=== PATIENT | male | born 1995 | race Caucasian/White ===

== ENCOUNTER 2019-04-03 10:39 | Emergency (ER) | payer MEDICAID ==
[~2019-04-03] VITALS: Ht 177.8 cm; Wt 120.7 kg
[2019-04-03 10:51] VITALS: BP 163/96
--- NOTE | 2019-04-03 10:56 | NUR ---
PT TAKEN TO BED 8.
--- NOTE | 2019-04-03 11:00 | NUR ---
C/O HEADACHE ADN FEELING PRESSURE IN HIS HEAD. PT ADMITS TO USING CRYSTAL METH THIS AM AND MARIJUANA AND BEER. . DENIES N/V/D; SKIN IS PINK/WARM/DRY; AAOX4 LUNGS CLEAR BL; HR EVEN AND REGULAR; PT DENIES ANY FEVER, CP, SOB, OR COUGH AT THIS TIME; VSS; PATIENT POSITIONED FOR COMFORT; HOB ELEVATED; BEDRAILS UP X2; BED DOWN. ER MD MADE AWARE OF PT STATUS.MOTHER AT BEDSIDE.
[2019-04-03] MEDS ORDERED: LORazepam 2 MG/ML VIAL IM ONE (11:05)
--- NOTE | 2019-04-03 12:30 | NUR ---
PT STATED HEADACHE RELIEVED. MOTHER AT BEDSIDE.
[2019-04-03 12:48] LABS: BARBITURATE, URINE NEG. ng/ml (NEG <=200); BENZODIAZEPINE, URINE NEG. ng/mL (NEG <=200); CANNABINOID, URINE NEG. ng/mL (NEG <=50); COCAINE, URINE NEG. ng/mL (NEG <=300); OPIATE, URINE NEG. ng/mL (NEG <=2000); PHENCYCLIDINE SCREEN,URINE NEG. ng/mL (NEG <=25)
[2019-04-03 12:54] VITALS: BP 138/89
--- NOTE | 2019-04-03 12:55 | NUR ---
Patient discharged with v/s stable. Written and verbal after care instructions given and explained. Patient verbalized understanding. Ambulatory with steady gait. All questions addressed prior to discharge. Advised to follow up with PMD.
== END 2019-04-03 12:55 | disposition home or self-care (01) ==
LOC: MED 10:39
DX: F15.10 Other stimulant abuse, uncomplicated (principal); F12.10 Cannabis abuse, uncomplicated; R51 Headache
CPT/HCPCS: 80305; 96372; 99283; J2060

== ENCOUNTER 2019-04-07 10:05 | Inpatient (IN) | payer MEDICAID ==
[~2019-04-07] VITALS: Ht 177.8 cm; Wt 113.0 kg
--- NOTE | 2019-04-07 10:15 | NUR ---
23 Y MALE BIB FAMILY C/O HALLUCINATION. PT REPORTS AUDITORY HALLUCINATIONS THAT TELL HIM TO DO THINGS, BUT HE STATES THAT HE DOESNT LISTEN. BETINA SUICIDAL IDEATION AT THIS TIME. PT REPORTS HE HAS NOT BEEN TAKING MEDICATION. PT TACHY AT 141. BP 177/92. AA0X4. DIAPHORETIC. RESTLESSNESS. PT ADMITS TO CONSUMING METH TODAY. BED IS DOWN, LOCKED, BED RIAL X 1, ERMD TO SEE PT. MEDHX:SCHITZOPHRENIA RX:ATIVAN
--- NOTE | 2019-04-07 10:18 | NUR ---
PT AMBULATED TO ER BED 05
--- NOTE | 2019-04-07 10:30 | NUR ---
POTENTIALLY HARMFUL OBJECTS REMOVED FROM PT ROOM A PRECAUTION. WILL CONTINUE TO MONITOR.
--- NOTE | 2019-04-07 10:35 | NUR ---
DR RAMAN AT BEDSIDE
[2019-04-07 10:41] LABS: BASOPHILS # (AUTO) 0.1 K/uL (0.00-0.22); BASOPHILS % (AUTO) 0.4 % (0.0-2.0); EOSINOPHILS % (AUTO) 0.1 % (0.0-4.0); HEMATOCRIT 43.5 % (36-52); HEMOGLOBIN 14.7 g/dL (12.0-18.0); LYMPHOCYTES # (AUTO) 1.1 K/uL (2.0-11.5); LYMPHOCYTES % (AUTO) 6.6 % (20.5-51.1); MEAN CORPUSCULAR HEMOGLOBIN 29 pg (27-31); MEAN CORPUSCULAR HGB CONC 34 g/dL (33-37); MEAN CORPUSCULAR VOLUME 85.5 fL (80-94); MONOCYTES # (AUTO) 1.2 K/uL (0.8-1.0); MONOCYTES % (AUTO) 7.2 % (1.7-9.3); NEUTROPHILS # (AUTO) 14.7 K/uL (1.8-7.7); NEUTROPHILS % (AUTO) 85.7 % (42.2-75.2); PLATELET COUNT (AUTO) 317 K/uL (140-450); RED BLOOD CELL COUNT(AUTO) 5.09 MIL/uL (4.20-6.10); RED CELL DISTRIBUTION WIDTH 13.1 % (11.6-13.7)
[2019-04-07 10:47] LABS: BARBITURATE, URINE NEG. ng/ml (NEG <=200); BENZODIAZEPINE, URINE NEG. ng/mL (NEG <=200); CANNABINOID, URINE POS. ng/mL (NEG <=50); COCAINE, URINE NEG. ng/mL (NEG <=300); OPIATE, URINE NEG. ng/mL (NEG <=2000); PHENCYCLIDINE SCREEN,URINE NEG. ng/mL (NEG <=25)
[2019-04-07 10:48] LABS: ANION GAP 16.7 (8-16); CARBON DIOXIDE 22.4 mmol/L (21-32); CREATININE 1.4 mg/dL (0.7-1.3); POTASSIUM 4.1 mmol/L (3.5-5.1)
[2019-04-07 10:50] LABS: APPEARANCE,URINE HAZY (CLEAR); BILIRUBIN,URINE 2+ (NEGATIVE); BLOOD, URINE 3+ (NEGATIVE); COLOR,URINE ORANGE (YELLOW); LEUKOCYTE ESTERASE ,URINE NEGATIVE (NEGATIVE); NITRITE, URINE NEGATIVE (NEGATIVE); UGLUCOSE NEGATIVE (NEGATIVE)
[2019-04-07] MEDS ORDERED: diphenhydrAMINE 50 MG/ML VIAL IVP ONE (10:50)
[2019-04-07] MEDS ORDERED: NACL 0.9% 1,000 ML IV ONE ×2 (10:50)
[2019-04-07] MEDS ORDERED: MULTIVITAMIN-12 10 ML, THIAMINE 100 MG, MAGNESIUM SULFATE 50% 2,000 MG, FOLIC ACID 5 MG... IV ONE ×5 (10:50)
[2019-04-07] MEDS ORDERED: HALOPERIDOL IM 5 MG/ML VIAL IM ONE (10:50)
[2019-04-07] MEDS ORDERED: LORazepam 2 MG/ML VIAL IVP ONE (10:50)
[2019-04-07 11:03] LABS: WHITE BLOOD COUNT (AUTO) 17.2 K/uL (4.8-10.8)
[2019-04-07 11:04] LABS: WBC,URINE 0-5 /HPF (0-5)
[2019-04-07 11:06] LABS: HYALINE CASTS, URINE 0-10 /LPF (None Seen)
[2019-04-07 11:13] LABS: BARBITURATE, URINE NEGATIVE ng/ml (NEG <=200); BENZODIAZEPINE, URINE NEGATIVE ng/mL (NEG <=200); CANNABINOID, URINE POSITIVE ng/mL (NEG <=50); COCAINE, URINE NEGATIVE ng/mL (NEG <=300); OPIATE, URINE NEGATIVE ng/mL (NEG <=2000); PHENCYCLIDINE SCREEN,URINE NEGATIVE ng/mL (NEG <=25)
--- NOTE | 2019-04-07 11:20 | NUR ---
CHENTE EMT AT BEDSIDE FOR EKG
--- NOTE | 2019-04-07 11:51 | NUR ---
PT SLEEPING IN BED. FAMILY BEDSIDE.
--- NOTE | 2019-04-07 12:01 | NUR ---
FAMILY STATES HE HAS TO STEP OUT OF THE ROOM BUT WOULD LIKE TO BE UPDATED WHEN POSSIBLE. #[phone]
[2019-04-07 12:10] LABS: ACETAMINOPHEN < 0.5 ug/ml (10-30); ALBUMIN 4.7 g/dL (3.4-5.0); ASPARTATE AMINOTRANSFERASE 136 U/L (15-37); BILIRUBIN,DIRECT 0.3 mg/dL (0.0-0.3); SALICYLATE < 2.8 mg/dL (2.8-20.0)
--- NOTE | 2019-04-07 13:35 | NUR ---
PT SLEEPING IN BED. AROUSABLE TO NAME. IV FLUIDS-BANANA BAG AND NORMAL SALINE RUNNING. VSS AT THIS TIME.
--- NOTE | 2019-04-07 14:23 | NUR ---
PT SLEEPING IN BED. AROUSABLE TO NAME.
--- NOTE | 2019-04-07 14:50 | NUR ---
BP 97/38. DR RAMAN NOTIFIED.
--- NOTE | 2019-04-07 16:49 | NUR ---
VSS AT THIS TIME. PT SLEEPING IN BED. AROUSABLE TO NAME AND THEN FALLS BACK ASLEEP ALMOST IMMEDIATELY.
--- NOTE | 2019-04-07 17:49 | NUR ---
SPOKE WITH DR RAMAN REGARDING PT PLAN OF CARE. DANISHA STATES HE MEDICALLY CLEARED PATIENT FOR PSYCH CONSULT.
[2019-04-07] MEDS ORDERED: LORA-476 PO (17:52)
--- NOTE | 2019-04-07 17:53 | NUR ---
TELEPSYCH ORDERED AT THIS TIME PER DR. RAMAN REQUEST
--- NOTE | 2019-04-07 18:00 | NUR ---
PT AMB TO BATHROOM WITH STEADY GAIT AFTER WAKING UP
--- NOTE | 2019-04-07 18:17 | NUR ---
SPOKE WITH TELEPSYCH. GAVE REPORT. TELEPSYCH DR SPOKE WITH PT. PT UNABLE TO STAY AWAKE. DR STATES TO CALL HIM LATER WHEN PT CAN ANSWER HIS QUESTIONS.
--- NOTE | 2019-04-07 18:58 | NUR ---
PT SLEEPING IN BED. AROUSABLE BY NAME. CAN'T HOLD A CONVERSATION. CONTINUES TO FALL BACK ASLEEP DURING CONVERSATION.
--- NOTE | 2019-04-07 19:11 | NUR ---
ASSUMED CARE OF PT FROM LEONARD LEYVA.
--- NOTE | 2019-04-07 20:02 | NUR ---
PT LETHARGIC. AROUSABLE TO VOICE. ALERT TO NAME AND BIRTHDAY. PT REMAINS ON CONTINOUS CARDAIC MONITORING. VITAL SIGNS REMAIN STABLE.
--- NOTE | 2019-04-07 20:50 | NUR ---
2ND TELEPSYCH REQUEST INITIATED PER DR. Darius DAI
--- NOTE | 2019-04-07 21:15 | NUR ---
TELEPSYCH, DR. MARRERO, CALLED BACK AND SPOKE WITH LEONARD JIM
--- NOTE | 2019-04-07 21:19 | NUR ---
SPOKE WITH DR. MARRERO FOR TELEPSYCH CONSULT, INFORMED DR OF PT STATUS. DR. MARRERO TO SPEAK TO PT VIA TELEPSYCH.
--- NOTE | 2019-04-07 21:23 | NUR ---
TELEPSYCH, DR. MARRERO, SPEAKING WITH PATIENT VIA REMOTE COMMUNICATION
[2019-04-07] MEDS ORDERED: AMMONIA AROMATIC 1 INHL INH ONE (21:34)
--- NOTE | 2019-04-07 21:54 | NUR ---
SPOKE WITH DR. MARRERO, IS RECCOMENDING 5150 HOLD AND INPATIENT ADMISSION.
--- NOTE | 2019-04-07 22:24 | NUR ---
Sitlee Mitali at bedside for one to one.
[2019-04-07 23:08] LABS: FREE T4 (FREE THYROXINE) 1.42 ng/dL (0.76-1.46); THYROID STIMULATING HORMONE 1.34 uIU/mL (0.34-3.74)
--- NOTE | 2019-04-08 00:08 | NUR ---
Packet and [id number] has been received via fax from ED. Call Center will begin looking for bed placement at contracted facilities. ED will be notified if a bed becomes available.
--- NOTE | 2019-04-08 00:32 | NUR ---
PT REMAINS ASLEEP. VITAL SIGNS REMAIN STABLE. SITTER AT BEDSIDE FOR 1:1 OBSERVATION.
--- NOTE | 2019-04-08 00:49 | NUR ---
Contacted the following contracted psych facilities regarding bed placement. At this time no beds available. [facility], spoke with Obdulia. [facility], spoke with Yi. New referral was faxed for AM review. [facility], spoke with Peterson. New referral was faxed for AM review. [facility], spoke with Jw. [facility], spoke with Yumiko. Referral was faxed over to place patient on wait list. [facility], spoke with Nancy. Referral was faxed for AM review. [facility], spoke with Tita. New referral was faxed for AM review. ED/Unit will be notified if and when a bed becomes available for patient but at this time no bed vacancies.
[2019-04-08] MEDS ORDERED: NACL 0.9% 1,000 ML IV SCH (02:21)
[2019-04-08] MEDS ORDERED: HYDROcodone/APAP 7.5/325 MG 1 TAB PO PRN (02:25)
[2019-04-08] MEDS ORDERED: ONDANSETRON 4 MG/2 ML VIAL IVP PRN (02:25)
[2019-04-08 02:45] VITALS: BP 91/26
--- NOTE | 2019-04-08 02:45 | NUR ---
PT ARRIVED ON FLOOR VIA W/C. REPORT GIVEN BY KIMBERLY YANEZDEVELOPMENT CHEMIST WHO RECEIVED REPORT FROM ER NURSE. SITTER AT BEDSIDE .
--- NOTE | 2019-04-08 03:00 | NUR ---
Patient will be admitted to care of DR TENOROI. Admited to MED/SURG. Will go to [id number]. Belongings list completed. Report to 109-B.
--- NOTE | 2019-04-08 03:00 | NUR ---
PT ON REGULAR DIET AND WAS GIVEN SANDWICH REQUESTED. 1:1 SITTER AT BEDSIDE.
--- NOTE | 2019-04-08 03:15 | NUR ---
PT IN BED EYES CLOSED BUT AROUSABLE TO NAME AND LIGHT SHAKING. ADMISSION QUESTIONS AT BEDSIDE. PT DROWSY AND NOT FORTH COMING WITH ANSWERS FOR ADMISSION. IV SITE LAC 18 GUAGE PT RUNNING N/S AT 150MLS/HR.
--- NOTE | 2019-04-08 06:20 | NUR ---
PT IN BED SLEEPING NO S/S OF PAIN OR DISTRESS NOTED. BED LOW SIDE RAILS UP X2 AND IV SITE ON 18 G LEFT AC IN TACT AND RUNNING N/S AT 150. SITTER AT BEDSIDE.
--- NOTE | 2019-04-08 07:35 | NUR ---
RECEIVED BEDSIDE REPORT FROM BILINGUAL ADMINISTRATIVE ASSISTANT NURSE. PATIENT IS AWAKE, ALERT AND ORIENTEDX2. NO SIGNS OF DISTRESS ON RA. SKIN IS INTACT. PATIENT IS AMBULATORY. PATIENT IS CONTINENT. L AC 18G INFUSING NS AT 150. CLEAN, DRY AND INTACT. PATIENT ON 5150 HOLD D/T AUDITORY HALLUCINATIONS. 1:1 SITTER AT BEDSIDE. BED IN LOW POSITION. CALL LIGHT WITHIN REACH. WILL CONTINUE TO MONITOR THE PATIENT
[2019-04-08 07:47] LABS: AMYLASE 28 U/L (25-115); LIPASE 287 U/L (73-393); MAGNESIUM 2.1 mg/dL (1.8-2.4); PHOSPHORUS 2.5 mg/dL (2.5-4.9)
[2019-04-08 07:51] LABS: PROTHROMBIN TIME 9.8 secs (10.8-13.4)
[2019-04-08 08:00] VITALS: BP 111/48
[2019-04-08] MEDS ORDERED: DOCUSATE SODIUM 100 MG GELCAP PO SCH (09:00)
--- NOTE | 2019-04-08 09:15 | NUR ---
PATIENT HAS BEEN SCREENED AND CATEGORIZED LOW NUTRITION RISK. PATIENT WILL BE SEEN WITHIN 7 DAYS OF ADMISSION. 04/14/[address]
[2019-04-08] MEDS ORDERED: LORazepam 2 MG/ML VIAL IVP SCH (09:17)
[2019-04-08] MEDS: NACL 0.9% 1,000 ML IV SCH ×2 (09:25→13:29)
--- NOTE | 2019-04-08 09:50 | NUR ---
IV BLEEDING. REMOVED IV. TIP INTACT. NEW IV ON R HAND 22G. CLEAN, DRY AND INTACT
--- NOTE | 2019-04-08 10:04 | NUR ---
ADMINISTERED MEDS. PATIENT HAS MILD TREMORS. DR ORDERED A ONE TIME DOSE OF ATIVAN. PATIENT TOLERATED WELL. FREIGHT ELEVATOR ERECTOR AT BEDSIDE. EDUCATED ON MEDS SIDE EFFECTS. PATIENT SLEEPING NOW. WILL CONTINUE TO MONITOR THE PATIENT
--- NOTE | 2019-04-08 11:24 | NUR ---
PATIENT IS SLEEPING. MOM AT BEDSIDE. WILL CONTINUE TO MONITOR THE PATIENT.
--- NOTE | 2019-04-08 13:07 | NUR ---
[employer] COMPENSATION CLAIMS SPECIALIST CALLED AND SHE SAID PATIENT HAS BED AT [facility] UN[address] RM 1604B. ADDRESS IS [address] [place] [address] MAHAJAN, REPORT TO .
--- NOTE | 2019-04-08 13:29 | NUR ---
administered IVF NS AT 150. IV CLEAN, DRY AND INTACT. WILL CONTINUE TO MONITOR THE PATIENT. PATIENT IS SLEEPING. 1:1 SITTER AT BEDSIDE
[2019-04-08] MEDS ORDERED: QUET50TA PO (14:08)
--- NOTE | 2019-04-08 14:33 | NUR ---
PATIENT IN THE RR. 1:1 SITTER AT BEDSIDE, WILL CONTINUE TO MONITOR THE PATIENT.
--- NOTE | 2019-04-08 14:57 | NUR ---
CALLED NAYELI LINDY, MOTHER, AT [phone]. NO ANSWER. LEFT A MESSAGE FOR HER TO CONTACT ME BACK AND GAVE HER MY CALL BACK NUMBER
--- NOTE | 2019-04-08 15:11 | NUR ---
GAVE TELEPHONE REPORT TO LEONARD GMAEZ AT [facility]. ANSWERED ALL QUESTIONS AND GAVE CALL BACK NUMBER. I TOLD THEM I WOULD CALL THEM BACK W AN ETA.
--- NOTE | 2019-04-08 15:17 | NUR ---
DC PLANNING Re[facility] unit 2 room 1604B, that pt needed transportation set up. Per nurse Kirstin anytime. Called & set up transfer with [facility] ambulance, ph [phone], for [address] waste picker. Called & spoke w pt's mother, Bernadette Nicolas ph [phone], in [place]. Mother is agreeable w transfer today, gave facility contact information. Informed Kirstin waste picker 1600. Per Kirstin already informed pt & agreeable.
--- NOTE | 2019-04-08 15:45 | NUR ---
CALLED [facility] AND LET THEM KNOW THE PATIENT IS BEING PICKED UP AT 1600
--- NOTE | 2019-04-08 16:15 | NUR ---
EDUCATED PATIENT ON DISEASE PROCESS, ABN S/SX, WHEN TO GO TO THE ER, EDUCATED PATIENT ON GOING TO PSYCH FAMILY, FAMILY AT BEDSIDE, AUNT. MOM AWARE AND COUSIN AWARE. EDUCATED ON MEDS, MEDS MAY BE CHANGED BY PSYCH PATIENT REFUSED PNA VACCINE, FLU NOT IN SEASON. REMOVED IV, TIP INTACT. PATIENT LEFT [facility] IN STABLE CONDITION.
== END 2019-04-08 16:15 | DRG 812 ==
LOC: MED 10:05 → MTU 04-08 02:21
PROVIDERS: ADMIT General Practice; ATTEND General Practice
DX: T43.621A Poisoning by amphetamines, accidental (unintentional), initial encounter (principal); N17.0 Acute kidney failure with tubular necrosis; G92 Toxic encephalopathy; R45.851 Suicidal ideations; E86.0 Dehydration; F20.9 Schizophrenia, unspecified; F15.129 Other stimulant abuse with intoxication, unspecified; F12.10 Cannabis abuse, uncomplicated; T43.596A Underdosing of other antipsychotics and neuroleptics, initial encounter; R74.0 Nonspecific elevation of levels of transaminase and lactic acid dehydrogenase [LDH]; J32.9 Chronic sinusitis, unspecified; F19.159 Other psychoactive substance abuse with psychoactive substance-induced psychotic disorder, unspecified; E66.9 Obesity, unspecified; Z68.35 Body mass index [BMI] 35.0-35.9, adult; Z71.3 Dietary counseling and surveillance; Z79.899 Other long term (current) drug therapy; Z56.0 Unemployment, unspecified; Y92.89 Other specified places as the place of occurrence of the external cause; Z91.14 Patient's other noncompliance with medication regimen; Z91.138 Patient's unintentional underdosing of medication regimen for other reason
CPT/HCPCS: 36415; 70450; 71045; 76705; 80048; 80076; 80305; 81001; 82150; 82550; 82553; 83036; 83690; 83735; 83880; 84100; 84439; 84443; 84484; 85025; 85610; 85730; 87081; 93005; 96361; 96365; 96366; 96372; 96375; 99285; A9153; G0480; G0482; J1200; J1630; J2060; J3411; J3475; J3490; J7030; Q0092

== ENCOUNTER 2019-06-13 20:38 | Emergency (ER) | payer MEDICAID ==
[~2019-06-13] VITALS: Ht 177.8 cm; Wt 122.5 kg
[~2019-06-13 20:38] MED LIST: QUET50TA PO
[2019-06-13 20:42] VITALS: BP 123/90
[2019-06-13 21:37] LABS: BASOPHILS # (AUTO) 0.1 K/uL (0.00-0.22); BASOPHILS % (AUTO) 0.4 % (0.0-2.0); EOSINOPHILS # (AUTO) 0.1 K/uL (0-0.4); EOSINOPHILS % (AUTO) 0.4 % (0.0-4.0); HEMATOCRIT 44.4 % (36-52); HEMOGLOBIN 14.9 g/dL (12.0-18.0); LYMPHOCYTES # (AUTO) 1.9 K/uL (2.0-11.5); LYMPHOCYTES % (AUTO) 11.6 % (20.5-51.1); MEAN CORPUSCULAR HEMOGLOBIN 29 pg (27-31); MEAN CORPUSCULAR HGB CONC 34 g/dL (33-37); MEAN CORPUSCULAR VOLUME 85.1 fL (80-94); MONOCYTES # (AUTO) 1.3 K/uL (0.8-1.0); MONOCYTES % (AUTO) 7.5 % (1.7-9.3); NEUTROPHILS # (AUTO) 13.4 K/uL (1.8-7.7); NEUTROPHILS % (AUTO) 80.1 % (42.2-75.2); PLATELET COUNT (AUTO) 306 K/uL (140-450); RED BLOOD CELL COUNT(AUTO) 5.21 MIL/uL (4.20-6.10); WHITE BLOOD COUNT (AUTO) 16.8 K/uL (4.8-10.8)
[2019-06-13 22:01] LABS: ANION GAP 12.8 (8-16); CARBON DIOXIDE 27.9 mmol/L (21-32); CHLORIDE 99 mmol/L (98-107); CREATININE 1.1 mg/dL (0.7-1.3); GFR ARICAN-AMERICAN 104 mL/min (>90); GLUCOSE 89 mg/dL (74-106); POTASSIUM 3.7 mmol/L (3.5-5.1); SODIUM SERUM 136 mmol/L (136-145); UREA NITROGEN, BLOOD 10 mg/dL (7-18)
[2019-06-13 22:05] LABS: ALBUMIN 4.3 g/dL (3.4-5.0); ASPARTATE AMINOTRANSFERASE 55 U/L (15-37)
[2019-06-13 22:05] LABS: BARBITURATE, URINE NEG. ng/ml (NEG <=200); BENZODIAZEPINE, URINE NEG. ng/mL (NEG <=200); CANNABINOID, URINE NEG. ng/mL (NEG <=50); COCAINE, URINE NEG. ng/mL (NEG <=300); OPIATE, URINE NEG. ng/mL (NEG <=2000); PHENCYCLIDINE SCREEN,URINE NEG. ng/mL (NEG <=25)
[2019-06-13 22:09] LABS: ACETAMINOPHEN < 0.5 ug/ml (10-30); SALICYLATE < 2.8 mg/dL (2.8-20.0)
[2019-06-13] MEDS ORDERED: HALOPERIDOL IM 5 MG/ML VIAL IM ONE (22:25)
[2019-06-13 23:15] VITALS: BP 121/76
== END 2019-06-13 23:14 | disposition home or self-care (01) ==
LOC: MED 20:38
DX: F20.9 Schizophrenia, unspecified (principal); Z79.899 Other long term (current) drug therapy
CPT/HCPCS: 36415; 80053; 80305; 85025; 93005; 96372; 99284; G0480; G0482; J1630

== ENCOUNTER 2019-06-15 22:36 | Emergency (ER) | payer MEDICAID ==
[~2019-06-15] VITALS: Ht 177.8 cm; Wt 122.5 kg
[2019-06-15 22:44] VITALS: BP 143/85
[2019-06-15 23:18] LABS: BASOPHILS # (AUTO) 0.1 K/uL (0.00-0.22); BASOPHILS % (AUTO) 0.7 % (0.0-2.0); EOSINOPHILS # (AUTO) 0.1 K/uL (0-0.4); EOSINOPHILS % (AUTO) 0.8 % (0.0-4.0); HEMATOCRIT 45.2 % (36-52); HEMOGLOBIN 15.4 g/dL (12.0-18.0); LYMPHOCYTES # (AUTO) 2.6 K/uL (2.0-11.5); LYMPHOCYTES % (AUTO) 15.1 % (20.5-51.1); MEAN CORPUSCULAR HEMOGLOBIN 29 pg (27-31); MEAN CORPUSCULAR HGB CONC 34 g/dL (33-37); MONOCYTES # (AUTO) 1.3 K/uL (0.8-1.0); MONOCYTES % (AUTO) 7.8 % (1.7-9.3); NEUTROPHILS # (AUTO) 12.8 K/uL (1.8-7.7); NEUTROPHILS % (AUTO) 75.6 % (42.2-75.2); PLATELET COUNT (AUTO) 330 K/uL (140-450); RED BLOOD CELL COUNT(AUTO) 5.32 MIL/uL (4.20-6.10); WHITE BLOOD COUNT (AUTO) 16.9 K/uL (4.8-10.8)
[2019-06-16 00:01] LABS: ANION GAP 12.4 (8-16); CARBON DIOXIDE 28.5 mmol/L (21-32); CHLORIDE 100 mmol/L (98-107); CREATININE 1.2 mg/dL (0.7-1.3); GFR ARICAN-AMERICAN 94 mL/min (>90); GLUCOSE 113 mg/dL (74-106); POTASSIUM 3.9 mmol/L (3.5-5.1); SODIUM SERUM 137 mmol/L (136-145); UREA NITROGEN, BLOOD 9 mg/dL (7-18)
[2019-06-16 00:07] LABS: ALBUMIN 4.3 g/dL (3.4-5.0); ASPARTATE AMINOTRANSFERASE 42 U/L (15-37); TOTAL BILIRUBIN 0.6 mg/dL (0.0-1.0)
[2019-06-16 00:08] LABS: SALICYLATE < 2.8 mg/dL (2.8-20.0)
[2019-06-16 00:09] LABS: ACETAMINOPHEN < 0.5 ug/ml (10-30)
[2019-06-16 00:21] LABS: APPEARANCE,URINE CLEAR (CLEAR); BILIRUBIN,URINE NEGATIVE (NEGATIVE); BLOOD, URINE TRACE-I (NEGATIVE); COLOR,URINE YELLOW (YELLOW); LEUKOCYTE ESTERASE ,URINE NEGATIVE (NEGATIVE); NITRITE, URINE NEGATIVE (NEGATIVE); PH,URINE 6.5 (5.0-9.0); UGLUCOSE NEGATIVE (NEGATIVE)
[2019-06-16 00:35] LABS: BARBITURATE, URINE NEG. ng/ml (NEG <=200); BENZODIAZEPINE, URINE NEG. ng/mL (NEG <=200); CANNABINOID, URINE NEG. ng/mL (NEG <=50); COCAINE, URINE NEG. ng/mL (NEG <=300); OPIATE, URINE NEG. ng/mL (NEG <=2000); PHENCYCLIDINE SCREEN,URINE NEG. ng/mL (NEG <=25)
[2019-06-16 00:42] LABS: RBC,URINE 0-5 /HPF (0-5); WBC,URINE NONE SEEN /HPF (0-5)
[2019-06-16] MEDS ORDERED: KETOROLAC 60 MG/2 ML VIAL IM ONE (01:55)
[2019-06-16 04:48] VITALS: BP 151/91
== END 2019-06-16 04:48 | disposition home or self-care (01) ==
LOC: MED 22:36
DX: F20.9 Schizophrenia, unspecified (principal); M79.10 Myalgia, unspecified site; F17.210 Nicotine dependence, cigarettes, uncomplicated; F14.10 Cocaine abuse, uncomplicated; F15.10 Other stimulant abuse, uncomplicated; Z79.899 Other long term (current) drug therapy
CPT/HCPCS: 36415; 80053; 80305; 81001; 85025; 96372; 99283; G0480; G0482; J1885

== ENCOUNTER 2019-06-16 12:39 | Emergency (ER) | payer MEDICAID ==
[~2019-06-16] VITALS: Ht 177.8 cm; Wt 79.4 kg
--- NOTE | 2019-06-16 12:39 | NUR ---
Patient BIBA ACLS, transferred to bed 5. RN evaluating patient at bedside.
[2019-06-16 12:44] VITALS: BP 120/78
--- NOTE | 2019-06-16 12:44 | NUR ---
Dr. Watts evaluating patient at bedside.
--- NOTE | 2019-06-16 12:52 | NUR ---
MOTHER NAYELI [phone]
--- NOTE | 2019-06-16 12:53 | NUR ---
24/M BIBA FROM HOME C/O LEFT SIDED CHEST PAIN NON RADIATING PROVOKED BY SMOKING METHAMPHETAMINES .DENIES SOB OR INJURY. SEEN IN OUR ER 06/13/2019; 06/15/2019 HX---SCHIZOPHRENIA, AMPHETAMINE USE. PATIENT STATES PAIN OF 2/10 AT THIS TIME;PATIENT POSITIONED FOR COMFORT; HOB ELEVATED; BEDRAILS UP X2; BED DOWN. ER MD MADE AWARE OF PT STATUS.
[2019-06-16] MEDS ORDERED: LORazepam 1 MG TAB PO ONE (12:55)
[2019-06-16] MEDS ORDERED: NACL 0.9% 1,000 ML IV ONE (12:55)
[2019-06-16 13:42] LABS: BASOPHILS # (AUTO) 0.1 K/uL (0.00-0.22); BASOPHILS % (AUTO) 0.4 % (0.0-2.0); EOSINOPHILS # (AUTO) 0.1 K/uL (0-0.4); EOSINOPHILS % (AUTO) 0.6 % (0.0-4.0); HEMATOCRIT 43.9 % (36-52); HEMOGLOBIN 14.9 g/dL (12.0-18.0); LYMPHOCYTES # (AUTO) 2.1 K/uL (2.0-11.5); LYMPHOCYTES % (AUTO) 13.1 % (20.5-51.1); MEAN CORPUSCULAR HEMOGLOBIN 29 pg (27-31); MEAN CORPUSCULAR HGB CONC 34 g/dL (33-37); MONOCYTES # (AUTO) 1.3 K/uL (0.8-1.0); NEUTROPHILS # (AUTO) 12.6 K/uL (1.8-7.7); NEUTROPHILS % (AUTO) 77.9 % (42.2-75.2); PLATELET COUNT (AUTO) 309 K/uL (140-450); RED BLOOD CELL COUNT(AUTO) 5.17 MIL/uL (4.20-6.10); RED CELL DISTRIBUTION WIDTH 13.1 % (11.6-13.7); WHITE BLOOD COUNT (AUTO) 16.2 K/uL (4.8-10.8)
[2019-06-16 14:06] LABS: ALBUMIN 4.1 g/dL (3.4-5.0); ANION GAP 14.6 (8-16); ASPARTATE AMINOTRANSFERASE 47 U/L (15-37); CARBON DIOXIDE 24.7 mmol/L (21-32); CHLORIDE 100 mmol/L (98-107); GFR ARICAN-AMERICAN 116 mL/min (>90); GLUCOSE 110 mg/dL (74-106); POTASSIUM 4.3 mmol/L (3.5-5.1); SODIUM SERUM 135 mmol/L (136-145); UREA NITROGEN, BLOOD 8 mg/dL (7-18)
[2019-06-16 14:09] LABS: SALICYLATE < 2.8 mg/dL (2.8-20.0)
[2019-06-16 14:10] LABS: ACETAMINOPHEN < 0.5 ug/ml (10-30)
[2019-06-16 14:15] LABS: BARBITURATE, URINE NEG. ng/ml (NEG <=200); BENZODIAZEPINE, URINE NEG. ng/mL (NEG <=200); CANNABINOID, URINE NEG. ng/mL (NEG <=50); COCAINE, URINE NEG. ng/mL (NEG <=300); OPIATE, URINE NEG. ng/mL (NEG <=2000); PHENCYCLIDINE SCREEN,URINE NEG. ng/mL (NEG <=25)
[2019-06-16 15:01] VITALS: BP 137/88
--- NOTE | 2019-06-16 15:01 | NUR ---
Kamila bean in ED - 06/16/19 at 1502 by [facility] Patient discharged with v/s stable. Written and verbal after care instructions given and explained. Patient verbalized understanding. Ambulatory with steady gait. All questions addressed prior to discharge. Advised to follow up with PMD.
--- NOTE | 2019-06-16 15:08 | NUR ---
LUNCH PROVIDED; PT'S MOTHER CALLED UPON HIS REQUEST FOR EMERGENCY PREPAREDNESS MANAGER
== END 2019-06-16 15:01 | disposition home or self-care (01) ==
LOC: MED 12:39
DX: F15.10 Other stimulant abuse, uncomplicated (principal); F20.9 Schizophrenia, unspecified; Z88.8 Allergy status to other drugs, medicaments and biological substances
CPT/HCPCS: 36415; 80053; 80305; 85025; 99284; G0480; G0482; J7030

== ENCOUNTER 2019-08-25 12:46 | Emergency (ER) | payer MEDICAID ==
[~2019-08-25] VITALS: Ht 177.8 cm; Wt 117.9 kg
[2019-08-25 12:54] VITALS: BP 128/81
[2019-08-25] MEDS ORDERED: LACTULOSE 20 GM/30 ML UDC PO ONE (13:20)
[2019-08-25] MEDS ORDERED: DICYCLOMINE HCL LIQUID 10 MG/5 ML UDC PO ONE (13:20)
--- NOTE | 2019-08-25 13:21 | NUR ---
PT TO ED WITH C/O ABD PAIN AND REPORTING PURULENT DRAINAGE FROM [place]. NO DRAINAGE NOTED. ABD IS SOFT NON TENDER. BOWEL SOUNDS ACTIVE X 4. NO DISTRESS NOTED. IN BED FOR EVAL.
--- NOTE | 2019-08-25 14:37 | NUR ---
PT REMAINS IN BED, CALM AND COOPERATIVE.
[2019-08-25 14:46] LABS: APPEARANCE,URINE CLEAR (CLEAR); BILIRUBIN,URINE NEGATIVE (NEGATIVE); BLOOD, URINE NEGATIVE (NEGATIVE); COLOR,URINE YELLOW (YELLOW); LEUKOCYTE ESTERASE ,URINE NEGATIVE (NEGATIVE); NITRITE, URINE NEGATIVE (NEGATIVE); PH,URINE 6.5 (5.0-9.0); UGLUCOSE NEGATIVE (NEGATIVE)
[2019-08-25 15:00] LABS: BARBITURATE, URINE NEG. ng/ml (NEG <=200); BENZODIAZEPINE, URINE NEG. ng/mL (NEG <=200); CANNABINOID, URINE NEG. ng/mL (NEG <=50); COCAINE, URINE NEG. ng/mL (NEG <=300); OPIATE, URINE NEG. ng/mL (NEG <=2000); PHENCYCLIDINE SCREEN,URINE NEG. ng/mL (NEG <=25)
--- NOTE | 2019-08-25 15:33 | NUR ---
Patient discharged with v/s stable. Written and verbal after care instructions given and explained. Patient alert, oriented and verbalized understanding of instructions. Ambulatory with steady gait. All questions addressed prior to discharge. ID band removed. Patient advised to follow up with PMD. Rx of COLACE, PROMETHAZINE SYRUP given. Patient educated on indication of medication including possible reaction and side effects. Opportunity to ask questions provided and answered.
[2019-08-25 15:34] VITALS: BP 128/81
== END 2019-08-25 15:33 | disposition home or self-care (01) ==
LOC: MED 12:46
DX: K59.09 Other constipation (principal); R05 Cough; F20.9 Schizophrenia, unspecified; F15.10 Other stimulant abuse, uncomplicated; Z79.899 Other long term (current) drug therapy
CPT/HCPCS: 74018; 80305; 81003; 99284

== ENCOUNTER 2020-07-24 19:52 | Emergency (ER) | payer MEDICAID ==
[~2020-07-24] VITALS: Ht 177.8 cm; Wt 104.3 kg
[2020-07-24 20:00] VITALS: BP 144/90
--- NOTE | 2020-07-24 20:02 | NUR ---
To Chair Gianna BOND
--- NOTE | 2020-07-24 20:04 | NUR ---
25 year old male coming in for Right Hallux pain x 1 month. states nail is about to fall off and had pus-like discharge yesterday. no pus during assessment. right hallux is warm to the touch. ROM intact. capillary refill < 3 seconds. all other systems WNL. VSS. awaitng MSE. denies pmhx nka
[2020-07-24 20:09] VITALS: BP 144/90
--- NOTE | 2020-07-24 20:12 | NUR ---
Dr. Jean assessing pt.
== END 2020-07-24 20:27 | disposition home or self-care (01) ==
LOC: MED 19:52
DX: B35.9 Dermatophytosis, unspecified (principal); Z79.899 Other long term (current) drug therapy
CPT/HCPCS: 99281